=== PATIENT | male | born 1965 | race Two or more races ===

== ENCOUNTER → 2017-03-29 | Day surgery (SDC) | payer MEDICARE ==
[~2017-03-29] MED LIST: ACETAMINOPHEN PO; ADVIL200 M1 PO; BENZONATATE PO; CLONAZEPAM0.5 MG PO; DEXILANT60 MG PO; FLOMAX0.4 M1 PO; IBUPROFEN800 MG PO; LODINE200 M1 PO; LORTAB 5/500 TA1 TA1 PO; NAPROXEN; NO MEDICATIONS; OXYCODONE HCL5 MG PO; OXYCODONE15 M1 PO; PHENERGAN25 MG PO; PREDNISONE50 MG PO; PRILOSEC PO; PRILOSEC40 MG PO; TYLENOL325 M1 PO
--- NOTE | ~2017-03-29 | OR ---
Unit #: [id number] #: [id number] Patient: KELSEY ORDONEZ [id number] [address] [place], [place] [address] [id number] MR#: [id number] NAME: KELSEY ORDONEZ ROOM: Date of Procedure: 03/29/2017 Admission Date: 03/29/2017 Surgeon: Isaias Joy M.D. : 1965 Attending Physician: Isaias Joy M.D. Primary Care Physician: Primary Care Physician No OPERATIVE REPORT PREOPERATIVE DIAGNOSES The patient has presented with a history of early satiety, postprandial bloating, and dyspepsia. PROCEDURES PERFORMED Upper gastrointestinal endoscopy and biopsy. POSTOPERATIVE DIAGNOSES Completely normal examination up to third part of duodenum. A biopsy was obtained from the antrum for CLOtest. RECOMMENDATIONS The patient will be started on empiric omeprazole 40 mg p.o. daily and will be followed up in the office in 6 to 8 weeks' time. If he is still symptomatic, gastric emptying study or a CAT scan of the abdomen will be done. SEDATION USED MAC. DESCRIPTION OF PROCEDURE Following detailed explanations of potential risks and complications of an upper endoscopy, namely perforation, bleeding, and complication related to sedation, the patient was brought to GI lab and laid in the left lateral decubitus position. Lubricated tip of the Olympus video upper endoscope was passed through the bite block into the proximal esophagus under direct vision. The entire esophageal mucosa was examined and appeared normal. Z-line was nicely demarcated, there being no esophagitis or hiatus hernia. The scope was then advanced into the gastric cavity and the latter was insufflated. Mucosa of the fundus, body, and antrum was examined and appeared unremarkable. Pylorus was intubated with visualization of the normal duodenal bulb and second and third part of the duodenum. Upon withdrawal and retroflexion; incisura, cardia, and greater curve was examined and a biopsy was obtained from the antrum for CLOtest. The scope was then withdrawn in the distal esophagus. The entire esophageal mucosa was examined all the way up to pharynx. No additional findings were noted. The patient tolerated the procedure without any postprocedure complications. Dictated by... Isaias Joy M.D. Unit #: [id number] #: [id number] Patient: KELSEY ORDONEZ NASRA/jackie TD: 03/29/2017 14:27 JOB #: [id number] CC: Asher Issa M.D. OPERATIVE REPORT Page 1 of 1 X Isaias Joy MD PROCEDURE OPERATIVE NOTE
== END | disposition home or self-care (01) ==
LOC: COPS 12:08
DX: R10.13 Epigastric pain (principal); R14.0 Abdominal distension (gaseous); K21.9 Gastro-esophageal reflux disease without esophagitis; Z87.442 Personal history of urinary calculi; Z98.890 Other specified postprocedural states
CPT/HCPCS: 87077; J2250